=== PATIENT | female | born 1955 | race Caucasian/White ===

== ENCOUNTER 2023-09-20 21:25 | Emergency (ER) | payer MEDICAID, OTHER ==
[~2023-09-20] VITALS: Ht 152.4 cm; Wt 109.0 kg
[2023-09-20 22:09] LABS: Basophils # (auto) 0.1 10 ^3/uL (0-0.2); Basophils % (auto) 0.8 % (0.0-2.0); Eosinophils # (auto) 0.1 10 ^3/uL (0-0.8); Eosinophils % (auto) 0.5 % (0.0-7.0); Hematocrit 47.3 % (36.0-46.0); Hemoglobin 16.5 g/dL (12.2-16.2); Lymphocytes # (auto) 1.9 10 ^3/uL (0.4-5.4); Lymphocytes % (auto) 11.3 % (10.0-50.0); Mean Corpuscular Hemoglobin 28.6 pg (28.0-32.0); Mean Corpuscular Hgb Conc. 34.8 g/dL (32.0-36.0); Mean Corpuscular Volume 82.1 fL (80.0-100.0); Monocytes # (auto) 1.2 10 ^3/uL (0-1.3); Monocytes % (auto) 6.9 % (0.0-12.0); Neutrophils # (auto) 13.9 10 ^3/uL (1.6-8.6); Neutrophils % (auto) 80.5 % (37.0-80.0); Nucleated Red Blood Cells % 0.3 %; Red Blood Cells 5.76 10^6/uL (4.0-5.20); Red Cell Distribution Width 14.1 % (11.8-14.3); White Blood Cell 17.2 10^3/uL (4.4-10.8)
[2023-09-20 22:20] LABS: Chloride 96 mmol/L (98-107); Sodium 136 mmol/L (136-145)
[2023-09-20 22:21] LABS: Anion Gap 10 (5-15); Carbon Dioxide 30 mmol/L (20-30)
[2023-09-20 22:22] LABS: Calcium 10.3 mg/dL (8.5-10.1)
[2023-09-20 22:27] LABS: BUN/Creatinine Ratio 10.4 (10.0-20.0); Blood Urea Nitrogen 11 mg/dL (9-23); Glucose 135 mg/dL (74-106)
[2023-09-20] MEDS: SODIUM CHLORIDE 0.9% 500 ML IV ONE (22:28)
[2023-09-20 22:30] VITALS: PULSE 64; RESP 18; O2SAT 99
[2023-09-20 22:45] LABS: Potassium 2.2 mmol/L (3.5-5.1)
[2023-09-20] MEDS: POTASSIUM CHL 20 Meq TABLET PO ONE (23:35)
[2023-09-21] VITALS: PULSE 90; RESP 19; O2SAT 98
[2023-09-21 00:13] LABS: Urine Bacteria None Seen /hpf (None Seen)
[2023-09-21] MEDS: POTASSIUM CHL 20MEQ/100ML 100 ML IV ONE ×2 (00:18→02:22)
[2023-09-21 00:23] LABS: Urine Blood Negative /uL (Negative); Urine Clarity Clear (Clear); Urine Color Light-Yellow (Yellow); Urine Protein, UAD Negative (Negative); Urine Specific Gravity 1.011 (1.001-1.035); Urine Urobilinogen Normal (Negative); Urine WBC 1 /hpf (0 - 5); Urine pH 7.5 (5.0-9.0)
[2023-09-21 01:01] LABS: COVID19 ANTIGEN SOFIA FIA NEGATIVE (NEGATIVE)
[2023-09-21] MEDS: cloNIDine HCL 0.1 MG TAB PO ONE (01:14)
[2023-09-21] MEDS: levoFLOXacin 500MG 100 ML IV ONE (03:55)
[2023-09-21 05:01] VITALS: TEMP 98.7
[2023-09-21] MEDS ORDERED: cloNIDine HCL 0.1 MG TAB PO ONE (06:15)
[2023-09-21] MEDS: POTASSIUM CHL 20MEQ/100ML 100 ML IV SCH (06:53)
[2023-09-21 08:00] VITALS: PULSE 65; RESP 19; O2SAT 98
[2023-09-21 16:19] VITALS: BP 141/64; PULSE 69; RESP 14; O2SAT 95
[2023-09-21] MEDS ORDERED: LEVO500T91 PO (16:48)
== END 2023-09-21 16:20 | disposition home or self-care (01) ==
LOC: EDBD 21:25 → ER 21:25
DX: E87.6 Hypokalemia (principal); R53.1 Weakness; E87.8 Other disorders of electrolyte and fluid balance, not elsewhere classified; D72.829 Elevated white blood cell count, unspecified; J44.9 Chronic obstructive pulmonary disease, unspecified; E11.9 Type 2 diabetes mellitus without complications; E78.5 Hyperlipidemia, unspecified; I10 Essential (primary) hypertension; Z90.49 Acquired absence of other specified parts of digestive tract; Z98.51 Tubal ligation status; Z20.822 Contact with and (suspected) exposure to COVID-19
CPT/HCPCS: 36415; 71045; 80048; 81001; 83735; 83880; 84132; 84484; 85025; 87040; 87426; 93005; 96361; 96365; 96366; 96367; 99285; J1956; J3480; J7030; J7040